=== PATIENT | female | born 1955 | race Native Hawaiian/Other Pacific Islander ===

== ENCOUNTER 2018-11-20 09:46 | Day surgery (SDC) | payer OTHER ==
[~2018-11-20] VITALS: Ht 30.5 cm; Wt 0.5 kg
== END 2018-11-20 13:12 | disposition home or self-care (01) ==
LOC: OR 09:46
PROC: 3E0R33Z Introduction of Anti-inflammatory into Spinal Canal, Percutaneous Approach (ICD-10-PCS; principal; 2018-11-20)
PROC: 3E0R3BZ Introduction of Anesthetic Agent into Spinal Canal, Percutaneous Approach (ICD-10-PCS; 2018-11-20)
DX: M53.3 Sacrococcygeal disorders, not elsewhere classified (principal); M46.1 Sacroiliitis, not elsewhere classified
CPT/HCPCS: J1020; J3490

== ENCOUNTER 2019-12-06 08:54 | Day surgery (SDC) | payer OTHER ==
[~2019-12-06] VITALS: Ht 30.5 cm; Wt 0.5 kg
== END 2019-12-06 09:35 | disposition home or self-care (01) ==
LOC: OR 08:54
PROC: 3E0T3TZ Introduction of Destructive Agent into Peripheral Nerves and Plexi, Percutaneous Approach (ICD-10-PCS; principal; 2019-12-06)
PROC: BR16YZZ Fluoroscopy of Lumbar Facet Joint(s) using Other Contrast (ICD-10-PCS; 2019-12-06)
DX: M47.817 Spondylosis without myelopathy or radiculopathy, lumbosacral region (principal)
CPT/HCPCS: J2001

== ENCOUNTER 2020-01-07 09:12 | Day surgery (SDC) | payer OTHER ==
[~2020-01-07] VITALS: Ht 30.5 cm; Wt 0.5 kg
== END 2020-01-07 12:06 | disposition home or self-care (01) ==
LOC: OR 09:12
PROC: 3E0T3TZ Introduction of Destructive Agent into Peripheral Nerves and Plexi, Percutaneous Approach (ICD-10-PCS; principal; 2020-01-07)
PROC: BR16YZZ Fluoroscopy of Lumbar Facet Joint(s) using Other Contrast (ICD-10-PCS; 2020-01-07)
DX: M47.817 Spondylosis without myelopathy or radiculopathy, lumbosacral region (principal)
CPT/HCPCS: J2001